=== PATIENT | male | born 1995 | race Caucasian/White ===

== ENCOUNTER 2017-03-09 20:29 | Emergency (ER) | payer SELFPAY ==
[2017-03-09] MEDS ORDERED: Ibuprofen TAB* 600 MG PO ONE (21:25)
[2017-03-09] MEDS ORDERED: Ondansetron ODT TAB* 4 MG PO ONE (21:25)
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
--- NOTE | 2017-03-09 22:29 | RAD ---
INDICATION: PA. 2. COMPARISON: None TECHNIQUE: Noncontrast axial source images was performed from the skull base to the thoracic inlet. Coronal and and sagittal reformatted images were generated. FINDINGS: Vertebrae: There is no fracture or acute focal bony lesion. Alignment: The craniocervical junction appears normal. The cervical vertebrae are normally aligned. Central Canal: There are no significant CT abnormalities of the central canal or foramina. MR imaging is a more sensitive method to evaluate the canal and foramina. Intervertebral disc spaces: The disc spaces are maintained. Brain: The visualized brain appears unremarkable. Soft tissues: The visualized soft tissue elements of the neck are unremarkable. The prevertebral soft tissues appear normal. The lung apices are clear. IMPRESSION: NEGATIVE EXAMINATION.
[2017-03-09] MEDS ORDERED: HYDROcodone/ACETAMIN 5-325 MG* 1 TAB PO ONE (23:21)
[2017-03-09 23:27] VITALS: BP 107/77
--- NOTE | 2017-03-10 08:29 | RAD ---
Indication: Right knee injury. 4 views of the right knee demonstrates no fracture. No other bone or joint abnormality is identified. IMPRESSION: No fracture of the right knee is noted.
== END 2017-03-09 23:34 | disposition home or self-care (01) ==
LOC: UCCORT 20:29
DX: S16.1XXA Strain of muscle, fascia and tendon at neck level, initial encounter (principal); S86.911A Strain of unspecified muscle(s) and tendon(s) at lower leg level, right leg, initial encounter; S80.01XA Contusion of right knee, initial encounter; S09.90XA Unspecified injury of head, initial encounter; V49.40XA Driver injured in collision with unspecified motor vehicles in traffic accident, initial encounter; Y93.9 Activity, unspecified; Y92.9 Unspecified place or not applicable; R11.0 Nausea; Z88.0 Allergy status to penicillin; Z72.0 Tobacco use
CPT/HCPCS: 72125; 99203; A9270-GY; G0463